=== PATIENT | male | born 1960 | race Two or more races ===

== ENCOUNTER → 2024-03-02 | Outpatient (BNVA) | payer MEDICAID, SELFPAY | END | disposition home or self-care (01) | PROVIDERS: PCP Physician Assistant; Referring Provider Physician Assistant; Visit Provider Urology | DX: N40.1 Benign prostatic hyperplasia with lower urinary tract symptoms (principal); N13.8 Other obstructive and reflux uropathy; R35.0 Frequency of micturition; E11.9 Type 2 diabetes mellitus without complications; I10 Essential (primary) hypertension; E66.9 Obesity, unspecified; F17.210 Nicotine dependence, cigarettes, uncomplicated | CPT/HCPCS: 81003; 99212; G0463 ==

== ENCOUNTER → 2024-04-25 | Outpatient (BNVA) | payer MEDICAID, SELFPAY | END | disposition home or self-care (01) | PROVIDERS: PCP Physician Assistant; Referring Provider Physician Assistant; Visit Provider Urology | DX: N40.1 Benign prostatic hyperplasia with lower urinary tract symptoms (principal); N13.8 Other obstructive and reflux uropathy | CPT/HCPCS: 76872 ==

== ENCOUNTER → 2024-07-27 | Outpatient (BNVA) | payer MEDICAID, SELFPAY | END | disposition home or self-care (01) | PROVIDERS: PCP Physician Assistant; Referring Provider Physician Assistant; Visit Provider Urology | DX: N40.1 Benign prostatic hyperplasia with lower urinary tract symptoms (principal); R39.12 Poor urinary stream; F17.210 Nicotine dependence, cigarettes, uncomplicated | CPT/HCPCS: 51741; 51798 ==

== ENCOUNTER 2024-09-16 19:37 | Emergency (ER) | payer MEDICAID, SELFPAY ==
[2024-09-16 19:38] VITALS: BMI 31.4
[2024-09-16 20:04] VITALS: BP 169/88; PULSE 77; RESP 20; TEMP 36.8; O2SAT 97
--- NOTE | 2024-09-16 20:08 | PD.EDALLER ---
ED Allergic Reaction RME/HPI General Chief complaint: Allergic Reaction Stated complaint: BURING ITCHY ALL OVER BODY Time Seen by Provider: 09/16/24 19:57 Arrival date/time: 09/16/24 19:37 63 year old male present to emergency room with c/o of itchy upper arms/generalized for 3 days. patient report sx appeared after gardening at home. LOCATION: arms SEVERITY: Symptoms are described as being severe with limitations on activities of daily living QUALITY: Symptoms are described as being dull or achy CONTEXT: The patient is unable to identify any inciting events. DURATION/TIMING: The symptoms started approximately 3 day ago and have been constant this then, and have been progressive getting worse. ASSOCIATED SYMPTOMS: The patient is unable to identify any other associated symptoms. MODIFYING FACTORS: The patient is unable to identify any alleviating or aggravating symptoms. PERTINENT ROS: denies IVDU, states no immunocompromising condition, denies any penetrating trauma, no fever, no unexplained nausea or vomiting, no headache, no chest pain REVIEW OF SYSTEMS: See History of Present Illness - with the exception of those mentioned in the history of present illness, all other systems reviewed and reported as negative GENERAL: In general the patient is awake, interactive, in an emergency department gurney. HEAD/EYES/EARS/NOSE/THROAT: normo-cephalic, atraumatic, mucus membranes are moist, anicteric, palpebral conjunctiva is pink, trachea is midline. CARDIOVASCULAR: regular rate and regular rhythm, no murmurs, heart sounds are not distant, strong pulses in all four extremities that are equal and symmetric bilateral upper and lower extremities, normal capillary refill. CHEST/PULMONARY: normal chest rise and fall, good air movement, clear to auscultation bilaterally, normal inspiratory to expiratory ratios without evidence of respiratory distress. NECK: No midline/Paraspinal tenderness, no step off ROM/Strenght intact No Kernig and bruzinski sign. No trauma ABDOMEN: soft, not tender, no masses appreciated BACK: normal range of motion without pain. NEUROLOGICAL: cranio-facial features are symmetric, moves all four extremities equally without obvious limitations or weakness. EXTREMITY: no tenderness to palpation over the long bones or large joints of the bilateral upper and lower extremities, no joint swelling, no joint erythema, no signs of trauma, no unilateral leg swelling and no peripheral edema. SKIN: warm, dry, well-perfused, no jaundice, poison vilma like rash on bilateral arms, no telangiectasias or petechia. PSYCH: calm, cooperative, no evidence of psychosis or agitation Related Data Home Medications ?Medication ?Instructions ?Recorded ?Confirmed citalopram 10 mg tablet (Celexa) 10 mg PO BID #0 tabs 01/12/14 07/27/24 metformin 500 mg tablet 500 mg PO BIDAC #0 tabs 01/12/14 07/27/24 (Glucophage) naproxen 500 mg tablet (Naprosyn) 500 mg PO BIDWM #0 tabs 01/12/14 07/27/24 tamsulosin 0.4 mg capsule 0.4 mg PO QHS 03/02/24 07/27/24 Previous Rx's ?Medication ?Instructions ?Recorded hydrocodone 5 mg-acetaminophen 325 1 tab PO BID PRN pain #10 tabs 03/31/23 mg tablet ibuprofen 600 mg tablet 600 mg PO Q6H #30 tabs 03/31/23 prednisone 10 mg tablet 10 mg PO QDAY #60 tabs 09/16/24 Allergies Allergy/AdvReac Type Severity Reaction Status Date / Time No Known Allergies Allergy Verified 09/16/24 19:40 Course Course Course Narrative: Presentation consistent with contact dermatitis as patient was exposed to poison vilma. No evidence of systemic symptoms of anaphylaxis, infections including cellulitis, or bullous disorders. Advised to monitor exposures and record symptoms.? Supportive therapies discussed.? ?Follow up with primary physician if symptoms continue. Monitor for high fever, spread of rash, pain, or other concerns. Plan:? Prescribed predisone taper for 15 days, advised to check suger? Advised Pt to take an OTC antihistamine as directed prn. Advised Pt on supportive measures, including taking cool showers, using Vilma Block or Aveeno or Calamine lotion, trimming nails and limiting excoriation, identifying and avoiding allergen source, washing suspected clothes and materials that may be allergen carriers in hot water and detergent, bathe pets, and cover any oozing blisters as they may form. Instructed patient to follow up with PCP if symptoms continue.? Present to ER with new or worsening symptoms. Quality Measures none Orders Category Date Time Status predniSONE Med 09/16/24 20:08 Discontinued 60 mg PO X1 ONE Vital Signs Vital signs: Vital Signs Temperature 98.2 F 09/16/24 20:04 Pulse Rate 77 09/16/24 20:04 Respiratory Rate 20 09/16/24 20:04 Blood Pressure 169/88 H 09/16/24 20:04 Pulse Oximetry (%) 97 09/16/24 20:04 Allergic Reaction Patient data External records reviewed:: [facility] previous records Clinical information provided by:: patient Social determinants that could affect healthcare access:: none Patient has the following chronic illnesses:: dm How is presenting disease/condition affected by chronic disease/condition?: uneffected by Evaluation data The following diagnostics were reviewed and interpreted by me:: other (specify) (na) Lab and/or radiology exams considered but not ordered:: n/a Interpretation Summary: na Medications / Prescriptions Medications or Prescriptions considered but not ordered:: na Medication administrations:: Medication Administration History Discontinued Medications Prednisone (Prednisone 20 Mg Tablet) 60 mg PO X1 ONE Stop: 09/16/24 20:09 as stated above Consultations Consultation(s) initiated? (list below): No Diagnosis Most likely diagnosis given after review of the tests above:: contact dermatitis Admission Indicated Admission indicated?: not indicated Admission Request Was there a request for admission?: No Disposition Plan Disposition Plan: Discharge Discharge Attestation Discharge Attestation: The patient and all family members were given an opportunity to ask questions and understood the discharge instructions. Discharge instructions specifically effects, indications for sooner follow up or return to the emergency department, and the expected course of current diagnosis. Patient condition: Stable Discharge Plan Plan Patient Disposition: HOME (Self Care) Prescriptions/Referrals Prescriptions/Med Rec: New prednisone 10 mg tablet 10 mg PO QDAY Qty: 60 0RF Rx Instructions: 60mg daily for 5 days 40mg daily for 4 days 30mg daily for 3 days 20mg daily for 2 days 10mg daily for 1 day No Action tamsulosin 0.4 mg capsule 0.4 mg PO QHS metformin [Glucophage] 500 MG tablet 500 mg PO BIDAC Qty: 0 citalopram [Celexa] 10 MG tablet 10 mg PO BID Qty: 0 naproxen [Naprosyn] 500 MG tablet 500 mg PO BIDWM Qty: 0 Patient Comments: PRN PAIN hydrocodone-acetaminophen 5-325 mg tablet 1 tab PO BID MDD 10 PRN (Reason: pain) Qty: 10 0RF ibuprofen 600 mg tablet 600 mg PO Q6H Qty: 30 0RF Problem List Clinical Impression: Contact dermatitis Patient/Caregiver Discharge Instructions Education Materials: ED Contact Dermatitis Print Language: Slovenian Stand Alone Forms: Jessy Award Info., Patient Portal Info Letter
[2024-09-16] MEDS: predniSONE 20 MG TABLET 60 MG PO (20:31)
== END 2024-09-16 20:35 | disposition home or self-care (01) ==
PROVIDERS: Emergency Provider Emergency Medicine
DX: L23.7 Allergic contact dermatitis due to plants, except food (principal)
CPT/HCPCS: 99282; J7512